=== PATIENT | male | born 1975 | race Caucasian/White ===

== ENCOUNTER 2018-04-08 13:17 | Emergency (ER) | payer SELFPAY ==
[~2018-04-08] VITALS: Ht 172.7 cm; Wt 75.4 kg
[2018-04-08 13:25] VITALS: BP 156/92
--- NOTE | 2018-04-08 13:46 | NUR ---
42 yo m bib daughter w/ c/o dizziness x 4 days. pt was seen at clinic 4 days ago, given pepto-bismol, amoxicillin, omeprazole, and metrodinazole. pt reports that today he is having HEADACHE 1/10, bl feet numbness and tongue numbness. aaox4, gcs 15. amb w/ steady gait. perrla. clinic did blood work, no results yet. hx denies. PATIENT POSITIONED FOR COMFORT; HOB ELEVATED; BEDRAILS UP X2; BED DOWN. ER MD MADE AWARE OF PT STATUS.
--- NOTE | 2018-04-08 14:00 | NUR ---
Patient being evaluated by DR LYNNE at bedside.
[2018-04-08] MEDS ORDERED: MECLIZINE 25 MG TAB PO ONE (14:20)
[2018-04-08 15:25] VITALS: BP 123/73
== END 2018-04-08 15:25 | disposition home or self-care (01) ==
LOC: MED 13:17
DX: H81.10 Benign paroxysmal vertigo, unspecified ear (principal); H55.00 Unspecified nystagmus
CPT/HCPCS: 70450; 99284; J8597